=== PATIENT | male | born 1995 ===

== ENCOUNTER 2021-02-11 11:02 | Outpatient (AMBR) | payer MEDICAID, SELFPAY ==
--- NOTE | 2021-01-25 13:28 | PT.ODAYNRPT ---
PT Outpatient Daily Note Date of Service: 01/25/2021 OP Daily Note Visit Reasons: right elbow Outpatient Physical Therapy Treatment Date: 01/25/21 Subjective: Pt reports same as previous visit. Objective: See flow chart for therex. Assessment: Pt had improved strength to R UE. Less compensation with therex. Pt tolerated therex well w/out complaints. Plan: Cont POC per PT. Length of Time (minutes) of Treatment: 30 Minutes Office Procedures PT Treatments PT Date of Service: 01/25/21 Therapeutic Exercise 30 minutes: Yes
--- NOTE | 2021-01-27 11:38 | PT.ODAYNRPT ---
PT Outpatient Daily Note Date of Service: 01/27/2021 OP Daily Note Visit Reasons: right elbow Outpatient Physical Therapy Treatment Date: 01/27/21 Subjective: Pt reports same as previous visit. Objective: See flow chart for therex. Assessment: Pt tolerated therex well w/ out complaints. Pt presents R shoulder weakness and noticed pt has limited R ER. Pt has improved slightly in R UE strengthening. Pt remains limited in R elbow extension. Pt tolerated 18 lbs ankle weights passive load stretching to R extension well w/out complaints. Pt believes the weights are helping him with extension. Plan: Cont POC per PT. Length of Time (minutes) of Treatment: 30 Minutes Office Procedures PT Treatments PT Date of Service: 01/25/21 Therapeutic Exercise 30 minutes: Yes PT Treatments PT Date of Service: 01/27/21 Therapeutic Exercise 30 minutes: Yes
--- NOTE | 2021-02-01 11:11 | PT.ODAYNRPT ---
PT Outpatient Daily Note Date of Service: 02/01/2021 OP Daily Note Visit Reasons: right elbow Outpatient Physical Therapy Treatment Date: 02/01/21 Subjective: Pt reports same as previous visit. Objective: See flow chart for therex. MT: THIAGO w/ dorian x 7mins. Assessment: Measured pt R elbow extension: -45 degrees. Pt tolerated therex well today w/out complaints. Pt has improved strength to R triceps and shoulder. Plan: Cont POC per PT. Length of Time (minutes) of Treatment: 30 Minutes Office Procedures PT Treatments PT Date of Service: 01/25/21 Therapeutic Exercise 30 minutes: Yes PT Treatments PT Date of Service: 01/27/21 Therapeutic Exercise 30 minutes: Yes PT Treatments PT Date of Service: 02/01/21 Therapeutic Exercise 30 minutes: Yes
--- NOTE | 2021-02-04 13:13 | PT.ODAYNRPT ---
PT Outpatient Daily Note Date of Service: 02/04/2021 OP Daily Note Visit Reasons: right elbow Outpatient Physical Therapy Treatment Date: 02/04/21 Subjective: pt states his elbow is Objective: see flow sheet. Assessment: pt has difficulty with the T's exercise due to the RUE. pointed out his compensation and demonstrated the correct form. pt not able to contract the mid traps on the R side. noted the R UT is more elevated than the L side. for his LLPS added multiple ankle weights per his request in order to feel the stretch. Plan: continue POC per PT. Length of Time (minutes) of Treatment: 30 Minutes Office Procedures PT Treatments PT Date of Service: 01/25/21 Therapeutic Exercise 30 minutes: Yes PT Treatments PT Date of Service: 01/27/21 Therapeutic Exercise 30 minutes: Yes PT Treatments PT Date of Service: 02/01/21 Therapeutic Exercise 30 minutes: Yes PT Treatments PT Date of Service: 02/04/21 Therapeutic Exercise 30 minutes: Yes
--- NOTE | 2021-02-11 13:09 | PT.ODAYNRPT ---
PT Outpatient Daily Note Date of Service: 02/11/2021 OP Daily Note Visit Reasons: right elbow Outpatient Physical Therapy Treatment Date: 02/11/21 Subjective: pt states his elbow is shorter than the LUE which makes him limited to certain things. Objective: see flow sheet. Assessment: attempted body blade exercise and pt was not able to understand the momentum. noted the position of this RUE makes it difficult to perform some of the exercises due to tightness. he is able to hold his LLPS but not able to actively stretch his elbow. added new exercise in which he did well with but did cause muscle fatigue. Plan: continue POC per PT. Length of Time (minutes) of Treatment: 30 Minutes Office Procedures PT Treatments PT Date of Service: 01/25/21 Therapeutic Exercise 30 minutes: Yes PT Treatments PT Date of Service: 01/27/21 Therapeutic Exercise 30 minutes: Yes PT Treatments PT Date of Service: 02/01/21 Therapeutic Exercise 30 minutes: Yes PT Treatments PT Date of Service: 02/04/21 Therapeutic Exercise 30 minutes: Yes PT Treatments PT Date of Service: 02/11/21 Therapeutic Exercise 30 minutes: Yes
== END 2021-02-22 23:59 | disposition home or self-care (01) ==
PROVIDERS: PCP Physician Assistant Medical; Referring Provider Physician Assistant Medical; Visit Provider Orthopaedic Surgery
DX: M24.521 Contracture, right elbow (principal)
CPT/HCPCS: 97110